=== PATIENT | male | born 2000 | race Caucasian/White ===

== ENCOUNTER 2022-12-20 19:32 | Emergency (ER) | payer BC, SELFPAY ==
[2022-12-20 19:41] VITALS: BP 149/92; PULSE 88; RESP 16; TEMP 36.6; O2SAT 100
--- NOTE | 2022-12-20 20:06 | ED.URI ---
HPI - URI/Sore Throat General Chief Complaint: Upper Respiratory Infection Stated Complaint: sore throat Time Seen by Provider: 12/20/22 20:06 Source: patient, RN notes reviewed and old records reviewed Mode of arrival: ambulatory Limitations: no limitations History of Present Illness HPI Narrative: 22 year old male presents to [facility] care with complaints of sore throat ehich started last evening around 7pm. He reports some sinus drainage and cogh noted with no known fevers chills or sweats. Patient reports that he has been taking Claritin, Sudafed and also some DayQuil for his symptoms. Patient reports that his throat is especially sore with swallowing. Patient reports no body aches headaches or any shortness of breath. MD elicited complaint: cough and sore throat Onset (ago): day(s) (1) Pain scale (0-10): 6 Treatments prior to arrival: other (Claritin,Sudafed and DayQuil) Related Data Allergies Allergy/AdvReac Type Severity Reaction Status Date / Time No Known Allergies Allergy Verified 12/20/22 19:46 Review of Systems Review of Systems: CONSTITUTIONAL: Denies malaise, chills, sweats, or fever. EYES: Denies visual changes, redness, or discharge. ENT: Reports rhinorrhea, congestion, sinus pain, no otalgia positive for sore throat. CARDIOVASCULAR: Denies chest pain, palpitations, or edema. RESPIRATORY: Reports cough.? Denies dyspnea. GASTROINTESTINAL: Denies abdominal pain, nausea, vomiting, diarrhea SKIN: Denies rash or itching. MUSCULOSKELETAL: Denies myalgia. NEUROLOGIC: Denies headache. All systems reviewed & are unremarkable except as noted in HPI and below PMFSH Social History Social History (Updated 12/22/22 @ 15:23 by Gean Tony NP) Smoking status: Never smoker Alcohol intake: current Alcohol use details: social Substance use: never Living arrangements: with family Gender identity (if verbalized by the patient): Male Comments At time of signature, agree with nursing past medical, surgical, social and family history. There is no relevant family history pertinent to the presenting complaint Exam Narrative: GENERAL: Well-appearing, well-nourished, and in no acute distress. HEAD: Normocephalic EYES: PERRLA, conjunctivae clear ENT: Nares clear, turbinates edematous and erythematous, clear discharge. Mucous membranes moist. TM pearly davila with dull light reflex bilaterally; no tragal tenderness. Oropharynx erythematous without lesions. Tonsils red not enlarged and without exudate, no drooling, no hoarseness, no trismus, uvula midline.post nasal drainage NECK: Supple. No lymphadenopathy CHEST: Clear to auscultation, breath sounds equal. No wheezing, rhonchi, rales, or stridor. No respiratory distress, speaks in full sentences.cough SAO2 100% on room air HEART: Regular rate and rhythm. No murmur heard. SKIN: Warm, dry, no rash. NEURO: Alert and oriented x3. PSYCH: Normal mood and affect Course Course Emergency Course: Patient is aware of diagnosis, understands and agrees to treatment plan.? Anticipatory guidance given.? Patient agrees to follow-up as directed and is aware of reasons to seek care at the emergency department. Portions of this record may have been created with voice recognition software Level of Care: Express Care Visit Vital Signs Vital signs: Vital Signs Temperature 36.6 C 12/20/22 19:41 Pulse Rate 88 12/20/22 19:41 Respiratory Rate 16 12/20/22 19:41 Blood Pressure 149/92 H 12/20/22 19:41 Pulse Oximetry 100 12/20/22 19:41 Oxygen Delivery Room Air 12/20/22 19:41 Temperature 36.6 C 12/20/22 19:41 Pulse Rate 88 12/20/22 19:41 Respiratory Rate 16 12/20/22 19:41 Blood Pressure 149/92 H 12/20/22 19:41 Pulse Oximetry 100 12/20/22 19:41 Oxygen Delivery Room Air 12/20/22 19:41 Reviewed MDM - URI/Sore Throat MDM Narrative Medical decision making narrative: Differential diagnosis considered: Day viru
== END 2022-12-20 20:17 | disposition home or self-care (01) ==
PROVIDERS: Emergency Provider Registered Nurse
DX: J06.9 Acute upper respiratory infection, unspecified (principal); J02.9 Acute pharyngitis, unspecified
CPT/HCPCS: 87081; 87880; 99213; G0463